=== PATIENT | male | born 1990 | race Caucasian/White ===

== ENCOUNTER 2024-06-18 07:20 | Emergency (ER) | payer OTHER ==
[~2024-06-18] VITALS: Ht 172.7 cm; Wt 65.8 kg
[2024-06-18 07:28] VITALS: PULSE 113; RESP 18; TEMP 98.3
[2024-06-18] MEDS ORDERED: MAGNESIUM/ALUMINUM/SIMETHICONE 30 ML UDC ONE (07:49)
[2024-06-18] MEDS: MAGNESIUM/ALUMINUM/SIMETHICONE 30 ML UDC PO ONE (07:49)
[2024-06-18 08:55] VITALS: BP 126/84; PULSE 96; RESP 18; O2SAT 98
== END 2024-06-18 09:00 | disposition home or self-care (01) ==
LOC: ER 07:35
DX: F15.90 Other stimulant use, unspecified, uncomplicated (principal); K21.9 Gastro-esophageal reflux disease without esophagitis
CPT/HCPCS: 99284